=== PATIENT | female | born 1990 | race African-American/Black ===

== ENCOUNTER 2025-07-27 14:28 | Outpatient (REF) | payer MEDICAID, SELFPAY ==
--- NOTE | ~2025-07-27 | XR_ITS ---
EXAMINATION: XR CHEST CLINICAL INFORMATION: Positive TB test. COMPARISON: None available. TECHNIQUE: 2 views of the chest were obtained. FINDINGS: The cardiac, hilar, and mediastinal contours are normal. The lungs are clear bilaterally. There is no pneumothorax or pleural effusion. There is no focal osseous or soft tissue abnormality. XR/XR chest 2V IMPRESSION: Normal chest. Electronically signed by: Yony Kinney MD 07/27/2025 03:01 PM [facility]ARTIN[facility]
== END 2025-07-27 14:29 | disposition home or self-care (01) ==
LOC: HO.HHCX 14:28
PROVIDERS: PCP Physician Assistant; Visit Provider Physician Assistant
DX: R76.12 Nonspecific reaction to cell mediated immunity measurement of gamma interferon antigen response without active tuberculosis (principal)
CPT/HCPCS: 71046

== ENCOUNTER → 2025-07-27 14:55 | Outpatient (BNV) | payer MEDICAID, SELFPAY | PROVIDERS: PCP Physician Assistant; Visit Provider Radiology Diagnostic Radiology | DX: A15.9 Respiratory tuberculosis unspecified (principal) | CPT/HCPCS: 71046 ==